=== PATIENT | female | born 1950 | race Caucasian/White ===

== ENCOUNTER → 2017-02-06 | Outpatient (CLI) | payer MEDICARE ==
[~2017-02-06] MED LIST: AGGRENOX 25 MG1 EACH PO; ALPRAZOLAM0.5 MG PO; BUSPAR 5MG TABLE5 MG PO; HYDROCHLOROTHIA25 MG PO; METOPROLOL TART25 MG PO; NEURONTIN 300300 MG PO; PRILOSEC OTC20 MG PO; TRAZODONE HCL50 MG PO; TYLENOL 325MG325 MG PO; ZOCOR40 MG PO; ZOLOFT100 MG PO
== END ==
LOC: LAB 12:23
DX: J45.40 Moderate persistent asthma, uncomplicated (principal); R06.02 Shortness of breath
CPT/HCPCS: 36415; 82785; 94060

== ENCOUNTER → 2017-02-20 | Outpatient (CLI) | payer MEDICARE | LOC: HEART 5 10:38 | DX: J45.40 Moderate persistent asthma, uncomplicated (principal) | CPT/HCPCS: 94010 ==

== ENCOUNTER → 2017-02-25 | Outpatient (CLI) | payer MEDICARE | LOC: KOH-I 10:07 | DX: M54.16 Radiculopathy, lumbar region (principal); G89.4 Chronic pain syndrome; M54.2 Cervicalgia; M51.36 Other intervertebral disc degeneration, lumbar region; M51.37 Other intervertebral disc degeneration, lumbosacral region; N28.89 Other specified disorders of kidney and ureter | CPT/HCPCS: 72148 ==

== ENCOUNTER → 2017-05-29 | Outpatient (CLI) | payer MEDICARE | LOC: RAD 13:41 | DX: J45.40 Moderate persistent asthma, uncomplicated (principal) | CPT/HCPCS: 71020 ==

== ENCOUNTER → 2020-12-07 | Outpatient (CLI) | payer MEDICARE, SELFPAY ==
[~2020-12-07] MED LIST changes: +ACTIGALL300 MG PO; +AMOX TR-K CLV1 EAC4 PO; +BREO ELLIPTA 11 EACH INH; +BUTALB-ACETAMI1 EAC1 PO; +GABAPENTIN300 MG PO; +LIPITOR TAB 1010 MG PO; +MACROBID 100 M100 MG PO; +PRAMIPEXOLE DI0.5 MG PO; +TOPAMAX50 MG PO; +VENTOLIN HFA 66.7 GM INH
== END ==
LOC: KOH-I 11:13
DX: M13.812 Other specified arthritis, left shoulder (principal)
CPT/HCPCS: 73030

== ENCOUNTER → 2021-01-30 | Outpatient (CLI) | payer MEDICARE, SELFPAY | LOC: EXRD 11:00 | DX: N28.1 Cyst of kidney, acquired (principal); N28.9 Disorder of kidney and ureter, unspecified | CPT/HCPCS: 76775 ==

== ENCOUNTER → 2021-06-28 | Outpatient (CLI) | payer MEDICARE | LOC: KOH-I 09:59 | DX: R06.02 Shortness of breath (principal) | CPT/HCPCS: 71046 ==

== ENCOUNTER → 2021-10-30 | Outpatient (CLI) | payer MEDICARE | LOC: KOH-I 15:20 | DX: R06.02 Shortness of breath (principal); R09.89 Other specified symptoms and signs involving the circulatory and respiratory systems; J90 Pleural effusion, not elsewhere classified | CPT/HCPCS: 71046 ==

== ENCOUNTER → 2021-12-27 | Outpatient (CLI) | payer MEDICARE | LOC: ECHO 11-15 12:45 | DX: R06.02 Shortness of breath (principal); I08.8 Other rheumatic multiple valve diseases | CPT/HCPCS: ECHO; 93306 ==

== ENCOUNTER → 2022-02-03 | Outpatient (CLI) | payer MEDICARE | LOC: KOH-I 13:45 | DX: N28.1 Cyst of kidney, acquired (principal) | CPT/HCPCS: 76775 ==

== ENCOUNTER → 2022-03-10 | Outpatient (CLI) | payer MEDICARE | LOC: LAB 14:06 | DX: Z01.812 Encounter for preprocedural laboratory examination (principal) | CPT/HCPCS: U0003 ==

== ENCOUNTER → 2022-03-20 | Outpatient (CLI) | payer MEDICARE | LOC: CT 13:29 | DX: N28.9 Disorder of kidney and ureter, unspecified (principal) | CPT/HCPCS: 36415; 82565; Q9965 ==

== ENCOUNTER 2022-05-03 14:47 | Inpatient (IN) | payer MEDICARE, OTHER ==
[~2022-05-03] VITALS: Ht 154.9 cm; Wt 66.7 kg
[~2022-05-03 14:47] MED LIST changes: +BUSPAR 10MG10 MG PO; -BUSPAR 5MG TABLE5 MG PO
[2022-05-03 16:13] LABS: HEMOGLOBIN 11.4 gm/dl (12.3-15.3); WHITE BLOOD COUNT 5.6 K/UL (4.5-11.0)
[2022-05-04 06:59] LABS: HEMOGLOBIN 12.5 gm/dl (12.3-15.3); RED BLOOD COUNT 4.33 M/UL (4.00-5.10); WHITE BLOOD COUNT 6.2 K/UL (4.5-11.0)
[2022-05-04] MEDS ORDERED: DONEPEZIL HCL5 MG PO (09:22)
[2022-05-04] MEDS ORDERED: FUROSEMIDE20 MG PO (09:23)
[2022-05-04] MEDS ORDERED: BACLOFEN10 MG PO (09:23)
[2022-05-04] MEDS ORDERED: MACROBID 100 M100 M1 PO (09:23)
[2022-05-04] MEDS ORDERED: ONDANSETRON HCL4 MG PO (09:23)
[2022-05-04] MEDS ORDERED: TOPIRAMATE50 MG PO ×2 (09:24→09:25)
[2022-05-04] MEDS ORDERED: PRAMIPEXOLE DI0.5 MG PO (09:24)
[2022-05-04] MEDS ORDERED: LIPITOR10 MG PO (09:25)
--- NOTE | 2022-05-04 13:27 | NUR ---
ORDERS TO DC A STILL AND NG WERE PUT IN ON THE WRONG PATIENT DUE TO THE FACT THAT DR LEGER WAS HAVING COMPUTER ISSUES. NO PROCEDURES WERE DONE AND THE PATIENT DIDNT HAVE A NG TUBE OR STILL TO DC.
[2022-05-05 07:03] LABS: HEMOGLOBIN 11.8 gm/dl (12.3-15.3); RED BLOOD COUNT 4.11 M/UL (4.00-5.10); WHITE BLOOD COUNT 5.5 K/UL (4.5-11.0)
--- NOTE | 2022-05-05 10:27 | NUR ---
PER DR ROSIE WATTS TO DISCONTINUE HEPARIN DRIP
[2022-05-06 06:07] LABS: HEMOGLOBIN 11.6 gm/dl (12.3-15.3); RED BLOOD COUNT 4.06 M/UL (4.00-5.10); WHITE BLOOD COUNT 5.4 K/UL (4.5-11.0)
[2022-05-06] MEDS ORDERED: ATORVASTATIN CA20 MG PO (08:49)
[2022-05-06] MEDS ORDERED: CLOPIDOGREL75 MG PO (08:49)
[2022-05-06] MEDS ORDERED: ASPIRIN EC81 MG PO (08:49)
== END 2022-05-06 12:00 | disposition home or self-care (01) | DRG 65 ==
LOC: ER1 14:47 → MED SURG 4 22:43 → CDU 22:43 → MED SURG 4 05-04 00:37
PROVIDERS: Internal Medicine; Physician Assistant Medical; Student in an Organized Health Care Education/Training Program; ADMIT Student in an Organized Health Care Education/Training Program
PROC: B24BZZZ Ultrasonography of Heart with Aorta (ICD-10-PCS; principal; 2022-05-04)
DX: I63.49 Cerebral infarction due to embolism of other cerebral artery (principal); G81.94 Hemiplegia, unspecified affecting left nondominant side; N17.9 Acute kidney failure, unspecified; Z20.822 Contact with and (suspected) exposure to COVID-19; E78.5 Hyperlipidemia, unspecified; J45.909 Unspecified asthma, uncomplicated; I08.1 Rheumatic disorders of both mitral and tricuspid valves; I12.9 Hypertensive chronic kidney disease with stage 1 through stage 4 chronic kidney disease, or unspecified chronic kidney disease; N18.9 Chronic kidney disease, unspecified; R29.810 Facial weakness; Z96.1 Presence of intraocular lens; D69.6 Thrombocytopenia, unspecified; E78.00 Pure hypercholesterolemia, unspecified; Z79.01 Long term (current) use of anticoagulants; Z79.82 Long term (current) use of aspirin; Z88.8 Allergy status to other drugs, medicaments and biological substances; Z82.49 Family history of ischemic heart disease and other diseases of the circulatory system; Z80.1 Family history of malignant neoplasm of trachea, bronchus and lung; Z82.3 Family history of stroke; Z98.42 Cataract extraction status, left eye; Z98.41 Cataract extraction status, right eye
CPT/HCPCS: ECHO; 0240U; 36415; 70450; 70496; 70498; 70551; 71045; 80048; 80053; 80061; 82550; 82553; 83036; 83735; 84484; 85025; 85027; 85610; 85730; 92610; 93005; 93270; 93306; 96374; 97161; 99285; G0378; J1644; Q9967